=== PATIENT | female | born 1960 | race African-American/Black ===

== ENCOUNTER 2016-08-07 10:47 | Emergency (ER) | payer BC, OTHER ==
[~2016-08-07] VITALS: Ht 170.2 cm; Wt 115.3 kg
[~2016-08-07 10:47] MED LIST: AUGMENTIN875 MG PO; BENTYL20 MG PO; CARAFATE1 GM PO; CEFTIN250 MG PO; DUONEB3 ML IH; LORTAB 5-325 M1 EACH PO; MOTRIN600 MG PO; NOHOMEMEDS; PERCOCET 5/31 TABLET PO; PROTONIX40 MG PO; PROVENTIL,2.5 MG/3 M IH; Symbicort 160-4.5 mc IH; Tylenol Regular Stre PO; VALIUM2 MG PO; ZOFRAN ODT4 MG PO; ZOFRAN ODT8 MG PO; ZOFRAN4 MG PO; [UNRECOGNIZED DRUG - OTHER] PO; ~No Medications
[2016-08-07 12:35] LABS: CHLORIDE 108 mEq/L (99-109); POTASSIUM 4.4 mEq/L (3.7-5.4); SODIUM 142 mEq/L (136-147)
[2016-08-07 12:37] LABS: GLUCOSE 93 mg/dL (70-99)
[2016-08-07 12:38] LABS: ANION GAP 6 MEQ/L (2-14)
[2016-08-07 12:39] LABS: TOTAL BILIRUBIN 0.3 mg/dL (0.0-1.0)
[2016-08-07 12:40] LABS: ALKALINE PHOSPHATASE 53 IU/L (3-129)
[2016-08-07 12:41] LABS: GFR ESTIMATE (CALCULATED) > 59 mL/min/
[2016-08-07 12:42] LABS: UREA NITROGEN (BUN) 10 mg/dL (9-23)
[2016-08-07 12:44] LABS: LIPASE 34 U/L (1.0-51.0)
[2016-08-07 13:03] LABS: HEMATOCRIT 41.7 % (36.0-46.0); MCH 24.9 PG (29.0-34.0); MCV 85.8 FL (83-99); MEAN PLAT.VOLUME 9.4 uM^3 (9.5-12.4); PLATELET COUNT 324 K/uL (156-360); RBC DIS.WIDTH-CV 14.3 % (11.8-14.6); RBC DIS.WIDTH-SD 45.2 % (39-53); RED BLOOD COUNT 4.86 M/uL (3.80-5.20); WHITE BLOOD COUNT 6.3 K/uL (4.1-10.2)
[2016-08-07 13:37] LABS: ADD MIUA? YES; BILIRUBIN NEGATIVE; BLOOD NEGATIVE; COLOR YELLOW ((YELLOW)); GLUCOSE (STRIP) NEGATIVE; KETONES NEGATIVE; LEUKOCYTES NEGATIVE; NITRITE NEGATIVE; PROTEIN (STRIP) NEGATIVE; SPECIFIC GRAVITY 1.012 (1.000-1.030); UROBILINOGEN 0.2 MG/DL (0.2-1.0)
[2016-08-07 13:54] LABS: BACTERIA RARE /HPF; EPITHELIAL CELLS RARE /HPF; MUCUS TRACE /LPF; RED BLOOD CELLS 0-5 /HPF (0-5); UCUL ADDED? NO; WHITE BLOOD CELLS 0-5 /HPF (0-5)
[2016-08-07] MEDS ORDERED: OMEPRAZOLE20 MG PO (16:16)
[2016-08-07] MEDS ORDERED: NAPROSYN500 MG PO (16:16)
[2016-08-07] MEDS ORDERED: BENTYL20 MG PO (16:16)
[2016-08-07] MEDS ORDERED: MECLIZINE HCL25 MG PO (17:21)
[2016-08-07 17:48] VITALS: BP 127/71
== END 2016-08-07 17:49 | disposition home or self-care (01) ==
LOC: EME 10:47
DX: K21.9 Gastro-esophageal reflux disease without esophagitis (principal); R10.12 Left upper quadrant pain; R10.13 Epigastric pain; R42 Dizziness and giddiness; F17.200 Nicotine dependence, unspecified, uncomplicated
CPT/HCPCS: 74020; 76705; 80053; 81003; 83690; 85027; 93005; 99281; 99283; J1885